=== PATIENT | female | born 1995 | race American Indian/Alaskan Native ===

== ENCOUNTER 2020-01-03 11:53 | Outpatient (CLI) | payer SELFPAY ==
[2020-01-03 12:24] VITALS: BP 118/59
[2020-01-03 13:49] LABS: Bacteria,Urine 2+ /HPF (Negative); Bilirubin,Urine NEG (Negative); Blood,Urine NEG (Negative); Color,Urine Yellow (Yellow); Mucus,Urine 1+ /HPF; Protein,Urine <15 mg/dL mg/dL (Negative); Urobilinogen,Urine < 2.0 mg/dL (<2.0)
[2020-01-03] MEDS ORDERED: LACTATED RINGERS 1,000 ML IV SCH (14:00)
== END 2020-01-03 15:43 | disposition home or self-care (01) ==
LOC: TRG 11:53 → APU 12:02 → TRG 15:43
PROVIDERS: ATTEND Obstetrics & Gynecology
DX: O26.892 Other specified pregnancy related conditions, second trimester (principal); R10.9 Unspecified abdominal pain; Z3A.23 23 weeks gestation of pregnancy
CPT/HCPCS: 59025; 81001

== ENCOUNTER 2020-01-10 13:35 | Outpatient (CLI) | payer SELFPAY | END 2020-01-10 19:25 | disposition home or self-care (01) | LOC: TRG 13:35 | PROVIDERS: ATTEND Obstetrics & Gynecology | DX: O47.02 False labor before 37 completed weeks of gestation, second trimester (principal); Z3A.24 24 weeks gestation of pregnancy | CPT/HCPCS: 36415; 82731 ==